=== PATIENT | male | born 1995 | race Caucasian/White ===

== ENCOUNTER → 2017-07-10 | Outpatient (CLI) | payer BC | LOC: M WUC 12:24 | DX: S63.501A Unspecified sprain of right wrist, initial encounter (principal) | CPT/HCPCS: 73110 ==

== ENCOUNTER → 2017-08-05 | Outpatient (REF) | payer BC | LOC: M LAB REF 10:11 | DX: J02.9 Acute pharyngitis, unspecified (principal) | CPT/HCPCS: 87430 ==

== ENCOUNTER 2018-07-14 19:58 | Emergency (ER) | payer BC ==
[~2018-07-14] VITALS: Ht 175.3 cm; Wt 77.3 kg
[2018-07-14] MEDS ORDERED: CEPH500T PO (20:05)
[2018-07-14] MEDS ORDERED: IBUP-1022 PO (21:34)
[2018-07-14] MEDS ORDERED: BACT800T5 PO (21:34)
[2018-07-14] MEDS ORDERED: IBUPROFEN 600 MG TAB PO ONE (21:45)
[2018-07-14] MEDS ORDERED: BACTRIM 160MG/800MG DS TAB PO ONE (21:45)
[2018-07-14] MEDS ORDERED: BACTRIM 160MG/800MG DS TAB As Ordered ONE (22:11)
[2018-07-14 22:16] VITALS: BP 145/80
== END 2018-07-14 22:31 | disposition home or self-care (01) ==
LOC: M ED 19:58
DX: L73.9 Follicular disorder, unspecified (principal); R59.0 Localized enlarged lymph nodes; Z98.890 Other specified postprocedural states